=== PATIENT | male | born 1945 | race African-American/Black ===

== ENCOUNTER 2018-10-06 11:34 | Inpatient (IN) | payer MEDICARE, MEDICAID ==
[2018-10-06] VITALS: BP 128/73
[~2018-10-06] VITALS: Ht 175.3 cm; Wt 99.8 kg
[~2018-10-06 11:34] MED LIST: METFORMIN; METOPROLOL
[2018-10-06] MEDS ORDERED: KETOROLAC 15MG/ML VIAL IV ONE (12:00)
[2018-10-06 12:16] LABS: BASOPHILS % 0.9 % (0.0-2.0); EOSINOPHILS % 1.2 % (0.0-5.0); HEMATOCRIT. 50.8 % (42.0-52.0); HEMOGLOBIN. 16.6 g/dL (14.0-18.0); LYMPHOCYTES % 25.2 % (20.0-50.0); MEAN CORPUSCULAR HEMOGLOBIN 27.3 pg (28.0-32.0); MEAN CORPUSCULAR VOLUME 83.5 fL (80.0-94.0); MEAN PLATELET VOLUME 8.4 fl (7.4-10.4); MONOCYTES % 12.4 % (2.0-8.0); NEUTROPHILS % 60.3 % (40.0-76.0); PLATELET 209 x1000/uL (130-400); RED BLOOD CELL COUNT 6.08 mill/uL (4.7-6.1); RED CELL DISTRIBUTION WIDTH 15.4 % (11.6-14.6)
[2018-10-06 12:18] LABS: CHLORIDE 110 mEq/L (98-107)
[2018-10-06 13:20] LABS: CLARITY URINE CLEAR (CLEAR); COLOR URINE YELLOW (YELLOW); KETONES URINE TRACE (NEGATIVE); LEUKOCYTE ESTERASE URINE TRACE (NEGATIVE); NITRITE URINE NEGATIVE (NEGATIVE); OCCULT BLOOD URINE 2+ (NEGATIVE); PH URINE 6.5 (4.5-8.0); PROTEIN URINE 1+ (NEGATIVE); SPECIFIC GRAVITY URINE 1.021 (1.005-1.030)
[2018-10-06] MEDS ORDERED: TAMSULOSIN HCL 0.4MG SR CAPSULE PO ONE (15:30)
[2018-10-06] MEDS ORDERED: SODIUM CHLORIDE 0.9% 1,000 ML IV ONE (15:30)
[2018-10-06] MEDS ORDERED: KETOROLAC 15MG/ML VIAL IV PRN (16:15)
[2018-10-06] MEDS ORDERED: ACETAMINOPHEN 325MG TABLET PO PRN (16:15)
[2018-10-06] MEDS ORDERED: SODIUM CHLORIDE 0.9% 1,000 ML IV SCH (16:15)
[2018-10-06] MEDS ORDERED: ONDANSETRON HCL 4MG/2ML INJ IV PRN (16:15)
[2018-10-06] MEDS ORDERED: CLONIDINE 0.1MG TABLET PO PRN (16:15)
[2018-10-06] MEDS ORDERED: HYDROCODONE/ACETAMINOPHEN 5/325MG TABLET PO PRN (16:15)
[2018-10-06] MEDS ORDERED: CEFTRIAXONE 1 G PREMIX 50 ML IV ONE (16:15)
[2018-10-06 20:00] VITALS: BP 136/94
[2018-10-06] MEDS: LOSARTAN POTASSIUM 50 MG TABLET PO SCH (20:26)
[2018-10-06] MEDS: KETOROLAC 15MG/ML VIAL IV SCH (20:27)
[2018-10-06] MEDS: AMLODIPINE 5MG TABLET PO SCH (21:24)
[2018-10-06] MEDS ORDERED: LOSA100T14 PO (23:15)
[2018-10-06] MEDS ORDERED: ATOR20TA65 PO (23:15)
[2018-10-06] MEDS ORDERED: METO25TA6 MT (23:15)
[2018-10-06] MEDS ORDERED: AMLO10TA80 MT (23:15)
[2018-10-06] MEDS ORDERED: METF500T60 PO (23:15)
[2018-10-06] MEDS ORDERED: ASPI-986 PO (23:15)
[2018-10-06] MEDS ORDERED: METO-539 MT (23:16)
[2018-10-07] VITALS: BP 128/73
[2018-10-07] MEDS: KETOROLAC 15MG/ML VIAL IV SCH ×2 (03:50→08:17)
[2018-10-07 04:00] VITALS: BP 131/78
[2018-10-07 06:38] LABS: BASOPHILS % 0.6 % (0.0-2.0); EOSINOPHILS % 2.1 % (0.0-5.0); HEMATOCRIT. 43.5 % (42.0-52.0); HEMOGLOBIN. 14.5 g/dL (14.0-18.0); LYMPHOCYTES % 30.1 % (20.0-50.0); MEAN CORPUSCULAR HEMOGLOBIN 27.3 pg (28.0-32.0); MEAN CORPUSCULAR VOLUME 82.1 fL (80.0-94.0); MEAN PLATELET VOLUME 8.7 fl (7.4-10.4); MONOCYTES % 13.5 % (2.0-8.0); NEUTROPHILS % 53.7 % (40.0-76.0); PLATELET 175 x1000/uL (130-400); RED CELL DISTRIBUTION WIDTH 15.3 % (11.6-14.6)
[2018-10-07 07:00] LABS: CHLORIDE 112 mEq/L (98-107)
[2018-10-07 08:00] VITALS: BP 144/83
[2018-10-07] MEDS: AMLODIPINE 5MG TABLET PO SCH (08:17)
[2018-10-07] MEDS: LOSARTAN POTASSIUM 50 MG TABLET PO SCH (08:17)
[2018-10-07] MEDS ORDERED: TAMSULOSIN HCL 0.4MG SR CAPSULE PO SCH (09:00)
[2018-10-07 11:50] VITALS: BP 147/80
[2018-10-07] MEDS ORDERED: KETOROLAC 30MG/ML VIAL IV SCH (12:00)
[2018-10-07] MEDS ORDERED: CEFTRIAXONE 1 G PREMIX 50 ML IV SCH ×2 (14:00→16:00)
[2018-10-07 15:37] VITALS: BP 145/77
[2018-10-07 16:16] VITALS: BP 145/77
[2018-10-07] MEDS ORDERED: KETOROLAC 15MG/ML VIAL IV SCH (18:00)
[2018-10-07] MEDS ORDERED: ATORVASTATIN CALCIUM 20MG TABLET PO SCH (21:00)
== END 2018-10-07 18:52 | disposition home or self-care (01) | DRG 694 ==
LOC: ER 11:34 → 6EST 16:07 → ENRESERV 17:22 → 6EST 10-07 06:09
PROVIDERS: ADMIT Internal Medicine; ATTEND Internal Medicine
DX: N13.2 Hydronephrosis with renal and ureteral calculous obstruction (principal); E11.65 Type 2 diabetes mellitus with hyperglycemia; E86.0 Dehydration; I10 Essential (primary) hypertension; K80.20 Calculus of gallbladder without cholecystitis without obstruction; K82.8 Other specified diseases of gallbladder; M19.90 Unspecified osteoarthritis, unspecified site; N28.1 Cyst of kidney, acquired; Z86.73 Personal history of transient ischemic attack (TIA), and cerebral infarction without residual deficits; Z79.899 Other long term (current) drug therapy; Z79.82 Long term (current) use of aspirin
CPT/HCPCS: 36415; 74176; 80048; 80076; 82962; 96365; 96375; 99285; J0696; J1885; J7030

== ENCOUNTER 2019-07-20 10:02 | Emergency (ER) | payer MEDICARE, MEDICAID ==
[~2019-07-20] VITALS: Ht 177.8 cm; Wt 96.0 kg
[~2019-07-20 10:02] MED LIST changes: +AMLO10TA80 MT; +ASPI-986 PO; +ATOR20TA65 PO; +LOSA100T32 PO; +METF500T60 PO; +METO-539 MT; +METO25TA6 MT
[2019-07-20 11:33] LABS: BASOPHILS % 1.1 % (0.0-2.0); EOSINOPHILS % 1.7 % (0.0-5.0); HEMATOCRIT. 46.4 % (42.0-52.0); HEMOGLOBIN. 15.8 g/dL (14.0-18.0); LYMPHOCYTES % 33.1 % (20.0-50.0); MEAN CORPUSCULAR HEMOGLOBIN 27.7 pg (28.0-32.0); MEAN CORPUSCULAR VOLUME 81.3 fL (80.0-94.0); MEAN PLATELET VOLUME 8.9 fl (7.4-10.4); MONOCYTES % 12.9 % (2.0-8.0); NEUTROPHILS % 51.2 % (40.0-76.0); PLATELET 197 x1000/uL (130-400); RED BLOOD CELL COUNT 5.71 mill/uL (4.7-6.1); RED CELL DISTRIBUTION WIDTH 14.6 % (11.6-14.6)
[2019-07-20] MEDS ORDERED: MORPHINE SULFATE 4 MG/ML CPJ (NOT FOR IM USE) IV STA (11:35)
[2019-07-20] MEDS ORDERED: SODIUM CHLORIDE 0.9% 1,000 ML IV ONE (11:35)
[2019-07-20] MEDS ORDERED: ONDANSETRON HCL 4MG/2ML INJ IV STA (11:35)
[2019-07-20 11:40] LABS: CHLORIDE 108 mEq/L (98-107)
[2019-07-20 11:47] LABS: INR 1.1; PROTHROMBIN TIME 10.9 sec (9.6-11.0)
[2019-07-20 12:36] LABS: CLARITY URINE CLEAR (CLEAR); COLOR URINE YELLOW (YELLOW); KETONES URINE NEGATIVE (NEGATIVE); LEUKOCYTE ESTERASE URINE NEGATIVE (NEGATIVE); NITRITE URINE NEGATIVE (NEGATIVE); OCCULT BLOOD URINE NEGATIVE (NEGATIVE); PH URINE 6.5 (4.5-8.0); PROTEIN URINE 1+ (NEGATIVE); SPECIFIC GRAVITY URINE 1.021 (1.005-1.030)
[2019-07-20 13:47] VITALS: BP 159/84
== END 2019-07-20 13:50 | disposition home or self-care (01) ==
LOC: ER 10:02
DX: S39.012A Strain of muscle, fascia and tendon of lower back, initial encounter (principal); I10 Essential (primary) hypertension; M19.90 Unspecified osteoarthritis, unspecified site; I69.351 Hemiplegia and hemiparesis following cerebral infarction affecting right dominant side; Z79.82 Long term (current) use of aspirin; Z98.1 Arthrodesis status; X58.XXXA Exposure to other specified factors, initial encounter; Y93.89 Activity, other specified; Y92.013 Bedroom of single-family (private) house as the place of occurrence of the external cause
CPT/HCPCS: 36415; 74176; 80053; 81003; 83690; 85025; 85610; 96374; 96375; 99285; J2270; J2405; J7030

== ENCOUNTER 2019-11-22 11:51 | Emergency (ER) | payer MEDICARE, MEDICAID ==
[~2019-11-22] VITALS: Ht 180.3 cm; Wt 95.0 kg
[2019-11-22 12:42] LABS: HEMOGLOBIN. 15.4 g/dL (14.0-18.0); MEAN CORPUSCULAR HEMOGLOBIN 27.7 pg (28.0-32.0); MEAN PLATELET VOLUME 8.3 fl (7.4-10.4); PLATELET 220 x1000/uL (130-400); RED BLOOD CELL COUNT 5.55 mill/uL (4.7-6.1); RED CELL DISTRIBUTION WIDTH 15.3 % (11.6-14.6)
[2019-11-22 12:51] LABS: CHLORIDE 106 mEq/L (98-107)
[2019-11-22] MEDS: AMPICILLIN SOD/SULBACTAM NA 3 G in SODIUM CHLORIDE 0.9% 100 ML IV SCH ×2 (13:00→15:17)
[2019-11-22 13:08] LABS: PLATELET ESTIMATE NORMAL
[2019-11-22] MEDS ORDERED: POTASSIUM CHLORIDE 20MEQ TABLET SR PO ONE (14:45)
[2019-11-22 17:52] VITALS: BP 156/91
== END 2019-11-22 19:04 | disposition short-term general hospital (02) ==
LOC: ER 11:51
DX: L03.116 Cellulitis of left lower limb (principal); L03.115 Cellulitis of right lower limb; E87.6 Hypokalemia; I10 Essential (primary) hypertension; Z79.899 Other long term (current) drug therapy; Z79.82 Long term (current) use of aspirin; Z98.890 Other specified postprocedural states
CPT/HCPCS: 36415; 80053; 85025; 87040; 93970; 96365; 96366; 99285; J0295; J7050; 99284

== ENCOUNTER 2021-08-05 16:45 | Inpatient (IN) | payer MEDICARE, MEDICAID ==
[~2021-08-05] VITALS: Ht 190.5 cm; Wt 92.5 kg
[2021-08-05] MEDS ORDERED: IPRATROPIUM BROMIDE (0.02%) 0.5MG/2.5ML NEB HHN STA (17:12)
[2021-08-05] MEDS ORDERED: METHYLPREDNISOLONE SOD SUCC 125 MG/2 ML VIAL IV STA (17:12)
[2021-08-05] MEDS ORDERED: MAGNESIUM 2 G PREMIX 50 ML IV ONE (17:15)
[2021-08-05 17:46] LABS: BASOPHILS % 0.3 % (0.0-2.0); EOSINOPHILS % 0.4 % (0.0-5.0); HEMATOCRIT. 47.3 % (42.0-52.0); HEMOGLOBIN. 15.8 g/dL (14.0-18.0); LYMPHOCYTES % 13.8 % (20.0-50.0); MEAN CORPUSCULAR HEMOGLOBIN 26.9 pg (28.0-32.0); MEAN CORPUSCULAR VOLUME 80.3 fL (80.0-94.0); MEAN PLATELET VOLUME 8.4 fl (7.4-10.4); MONOCYTES % 3.7 % (2.0-8.0); NEUTROPHILS % 81.8 % (40.0-76.0); PLATELET 158 x1000/uL (130-400); RED BLOOD CELL COUNT 5.89 mill/uL (4.7-6.1); RED CELL DISTRIBUTION WIDTH 15.3 % (11.6-14.6)
[2021-08-05 17:53] LABS: CHLORIDE 106 mEq/L (98-107)
[2021-08-05 18:07] LABS: BG CARBOXYHEMOGLOBIN 0.7 % (0.5-1.5); BG DEOXYHEMOGLOBIN 9.1 % (0.0-5.0); BG FRACTION INSPIRED OXYGEN 21; BG HCO3 ACT 24.7 mmol/L (22.0-26.0); BG METHEMOGLOBIN 0.1 % (0.0-1.5); BG OXYGEN SATURATION 90.8 % (92.0-98.5); BG OXYHEMOGLOBIN 90.1 % (94.0-97.0); BG PCO2 36.7 mmHg (35.0-45.0); BG PH 7.446 (7.350-7.450); BG PO2 56.3 mmHg (75.0-100.0); BG SAMPLE SITE LEFT RADIAL; BG TOTAL HEMOGLOBIN 16.3 g/dL (12.0-18.0); BG VENT MODE ROOM AIR
[2021-08-05] MEDS: ALBUTEROL (0.083%) 2.5MG/3ML NEB HHN SCH ×3 (18:10→19:05)
[2021-08-05] MEDS ORDERED: ACETAMINOPHEN 325MG TABLET PO ONE (21:00)
[2021-08-06] MEDS ORDERED: ENOXAPARIN 100MG/ML SYR SUBCUT ONE (00:45)
[2021-08-06] MEDS ORDERED: METHYLPREDNISOLONE SOD SUCC 40 MG/ML VIAL IV SCH ×2 (06:00→14:00)
[2021-08-06] MEDS ORDERED: IPRATROPIUM/ALBUTEROL 0.5-3(2.5)MG/3ML NEB HHN PRN (06:45)
[2021-08-06] MEDS ORDERED: IOHEXOL-350 100 ML BOTTLE ONE (07:34)
[2021-08-06 11:45] VITALS: BP 179/98
[2021-08-06 11:48] VITALS: BP 179/98
[2021-08-06] MEDS ORDERED: LORAZEPAM 0.5MG TABLET PO PRN (12:15)
[2021-08-06] MEDS ORDERED: ACETAMINOPHEN 650MG/20.3ML UDC GT PRN (12:15)
[2021-08-06] MEDS ORDERED: DIPHENHYDRAMINE 50MG/ML VIAL IV PRN (12:15)
[2021-08-06] MEDS ORDERED: CEFTRIAXONE 1 G PREMIX 50 ML IV SCH (12:15)
[2021-08-06] MEDS ORDERED: DOCUSATE SODIUM 100MG CAPSULE PO PRN (12:15)
[2021-08-06] MEDS ORDERED: MAGNESIUM/ALUMINUM HYDROXIDE/SIMETHICONE 30ML UDC PO PRN (12:15)
[2021-08-06] MEDS ORDERED: GUAIFENESIN 200MG/10ML SUGAR FREE UDC PO PRN (12:15)
[2021-08-06] MEDS ORDERED: NA PHOS,M-B/NA PHOS,DI-BA ENEMA 118ML PR PRN (12:15)
[2021-08-06] MEDS ORDERED: IPRATROPIUM/ALBUTEROL 0.5-3(2.5)MG/3ML NEB NEB PRN (12:15)
[2021-08-06] MEDS ORDERED: DEXTROSE 50% WATER 50ML SYRINGE IV PRN ×2 (12:15→14:30)
[2021-08-06] MEDS ORDERED: ONDANSETRON HCL 4MG/2ML INJ IV PRN (12:15)
[2021-08-06] MEDS: BLOOD SUGAR DIAGNOSTIC STRIP TEST SCH ×3 (12:23→21:20)
[2021-08-06] MEDS: IPRATROPIUM/ALBUTEROL 0.5-3(2.5)MG/3ML NEB NEB SCH ×2 (12:30→18:00)
[2021-08-06] MEDS: AMLODIPINE 5MG TABLET PO SCH ×2 (12:41→21:21)
[2021-08-06] MEDS: INSULIN LISPRO 100 UNITS/ML SUBCUT SCH ×2 (12:42→21:22)
[2021-08-06] MEDS: CLONIDINE 0.1MG TABLET PO PRN (13:21)
[2021-08-06] MEDS: CEFTRIAXONE 1,000 MG in DEXTROSE 5% WATER 50 ML IV SCH (13:43)
[2021-08-06] MEDS ORDERED: FURO-151 MT (13:49)
[2021-08-06] MEDS ORDERED: TAMS-11 MT (13:49)
[2021-08-06 14:00] VITALS: BP 157/91
[2021-08-06] MEDS: AZITHROMYCIN 500 MG in DEXT 5% WATER 250 ML IV SCH (14:50)
[2021-08-06 15:26] LABS: INR 1.2; PROTHROMBIN TIME 13.2 sec (9.6-11.0)
[2021-08-06 15:30] LABS: CREATINE KINASE MB FRACTION 1.9 ng/mL (0.5-3.6)
[2021-08-06] MEDS ORDERED: NALOXONE HCL 0.4MG/ML VIAL IV PRN (15:45)
[2021-08-06 15:47] LABS: D-DIMER > 35.20 mg/L FEU (<0.50)
[2021-08-06 16:00] VITALS: BP 148/89
[2021-08-06] MEDS ORDERED: BLOOD SUGAR DIAGNOSTIC STRIP TEST SCH (16:40)
[2021-08-06] MEDS ORDERED: INSULIN LISPRO 100 UNITS/ML SUBCUT SCH (17:10)
[2021-08-06 20:00] VITALS: BP 152/88
[2021-08-06] MEDS ORDERED: AMLODIPINE 5MG TABLET PO SCH (21:00)
[2021-08-06] MEDS: METHYLPREDNISOLONE SOD SUCC 40 MG/ML VIAL IV SCH (21:20)
[2021-08-06] MEDS: FAMOTIDINE 20MG TABLET PO SCH (21:21)
[2021-08-07] VITALS: BP 141/81
[2021-08-07 04:00] VITALS: BP 146/82
[2021-08-07] MEDS: IPRATROPIUM/ALBUTEROL 0.5-3(2.5)MG/3ML NEB NEB SCH ×3 (06:17→17:41)
[2021-08-07] MEDS: METHYLPREDNISOLONE SOD SUCC 40 MG/ML VIAL IV SCH ×3 (06:18→21:00)
[2021-08-07 08:00] VITALS: BP 145/104
[2021-08-07 09:09] LABS: BG BASE EXCESS 3.1 mmol/L (-2.0-2.0); BG CARBOXYHEMOGLOBIN 0.9 % (0.5-1.5); BG DEOXYHEMOGLOBIN 8.9 % (0.0-5.0); BG FRACTION INSPIRED OXYGEN 21; BG HCO3 ACT 26.7 mmol/L (22.0-26.0); BG METHEMOGLOBIN 0.2 % (0.0-1.5); BG PCO2 37.8 mmHg (35.0-45.0); BG PH 7.467 (7.350-7.450); BG PO2 54.2 mmHg (75.0-100.0); BG SAMPLE SITE LEFT BRACHIAL; BG TOTAL HEMOGLOBIN 15.2 g/dL (12.0-18.0); BG VENT MODE ROOM AIR
[2021-08-07] MEDS: ENOXAPARIN 40MG/0.4ML SYR SUBCUT SCH (10:16)
[2021-08-07] MEDS: AMLODIPINE 5MG TABLET PO SCH ×2 (10:17→20:58)
[2021-08-07 11:19] LABS: HEMATOCRIT. 41.5 % (42.0-52.0); HEMOGLOBIN. 14.3 g/dL (14.0-18.0); MEAN CORPUSCULAR HEMOGLOBIN 27.3 pg (28.0-32.0); MEAN CORPUSCULAR VOLUME 79.4 fL (80.0-94.0); MEAN PLATELET VOLUME 9.3 fl (7.4-10.4); PLATELET 129 x1000/uL (130-400); RED BLOOD CELL COUNT 5.24 mill/uL (4.7-6.1); RED CELL DISTRIBUTION WIDTH 15.6 % (11.6-14.6)
[2021-08-07 11:36] LABS: CHLORIDE 107 mEq/L (98-107)
[2021-08-07 11:48] LABS: HDL CHOLESTEROL 52 mg/dL (40-59)
[2021-08-07 11:50] LABS: LDL CHOLESTEROL 74 mg/dL (5-100)
[2021-08-07 11:51] LABS: CREATINE KINASE 274 IU/L (39-308); CREATINE KINASE MB FRACTION 2.2 ng/mL (0.5-3.6)
[2021-08-07 12:00] VITALS: BP_SYST 131; BP_SYST 151; BP_DIAS 87; BP_DIAS 95
[2021-08-07] MEDS: BLOOD SUGAR DIAGNOSTIC STRIP TEST SCH ×3 (12:10→21:53)
[2021-08-07] MEDS: INSULIN LISPRO 100 UNITS/ML SUBCUT SCH ×3 (12:40→20:59)
[2021-08-07] MEDS: HYDROCODONE/ACETAMINOPHEN 5/325MG TABLET PO PRN (13:43)
[2021-08-07] MEDS: CEFTRIAXONE 1,000 MG in DEXTROSE 5% WATER 50 ML IV SCH (13:45)
[2021-08-07 14:14] LABS: PLATELET ESTIMATE NORMAL
[2021-08-07] MEDS: AZITHROMYCIN 500 MG in DEXT 5% WATER 250 ML IV SCH (14:57)
[2021-08-07] MEDS ORDERED: BUDESONIDE 0.5MG/2ML NEB HHN SCH (15:00)
[2021-08-07 16:00] VITALS: BP 147/75
[2021-08-07] MEDS: BUDESONIDE 0.5MG/2ML NEB HHN SCH (17:42)
[2021-08-07] MEDS: PANTOT AC/MIN OIL/PET HY-PHL OINT (AQUAPHOR) TOP SCH (18:00)
[2021-08-07 20:00] VITALS: BP 136/76
[2021-08-07] MEDS: FAMOTIDINE 20MG TABLET PO SCH (20:58)
[2021-08-08] VITALS: BP 125/66
[2021-08-08 04:00] VITALS: BP 151/76
[2021-08-08] MEDS: METHYLPREDNISOLONE SOD SUCC 40 MG/ML VIAL IV SCH (06:38)
[2021-08-08] MEDS: INSULIN LISPRO 100 UNITS/ML SUBCUT SCH ×4 (06:39→21:31)
[2021-08-08] MEDS: BLOOD SUGAR DIAGNOSTIC STRIP TEST SCH ×4 (06:40→21:31)
[2021-08-08 07:24] LABS: HEMOGLOBIN. 14.1 g/dL (14.0-18.0); MEAN CORPUSCULAR HEMOGLOBIN 26.5 pg (28.0-32.0); MEAN CORPUSCULAR VOLUME 78.9 fL (80.0-94.0); MEAN PLATELET VOLUME 9.2 fl (7.4-10.4); PLATELET 122 x1000/uL (130-400); RED BLOOD CELL COUNT 5.32 mill/uL (4.7-6.1); RED CELL DISTRIBUTION WIDTH 15.5 % (11.6-14.6)
[2021-08-08 07:42] LABS: CHLORIDE 109 mEq/L (98-107)
[2021-08-08 08:00] VITALS: BP 153/88
[2021-08-08] MEDS: IPRATROPIUM/ALBUTEROL 0.5-3(2.5)MG/3ML NEB NEB SCH ×4 (10:10→19:54)
[2021-08-08] MEDS: BUDESONIDE 0.5MG/2ML NEB HHN SCH ×2 (10:10→19:55)
[2021-08-08] MEDS: PANTOT AC/MIN OIL/PET HY-PHL OINT (AQUAPHOR) TOP SCH (10:29)
[2021-08-08] MEDS: ENOXAPARIN 40MG/0.4ML SYR SUBCUT SCH (10:29)
[2021-08-08] MEDS: AMLODIPINE 5MG TABLET PO SCH ×2 (10:30→21:25)
[2021-08-08 12:00] VITALS: BP 143/75
[2021-08-08] MEDS: CEFTRIAXONE 1,000 MG in DEXTROSE 5% WATER 50 ML IV SCH (12:33)
[2021-08-08] MEDS ORDERED: IPRA3AMP9 NEB (13:25)
[2021-08-08] MEDS ORDERED: P20 PO (13:25)
[2021-08-08] MEDS ORDERED: FLUT1AER INH (13:25)
[2021-08-08 14:03] LABS: PLATELET ESTIMATE SLIGHTLY DECREASED
[2021-08-08 16:00] VITALS: BP 155/87
[2021-08-08] MEDS ORDERED: LEVO500T89 MT (16:16)
[2021-08-08] MEDS: AZITHROMYCIN 500 MG in DEXT 5% WATER 250 ML IV SCH (17:14)
[2021-08-08 18:35] LABS: CLARITY URINE CLEAR (CLEAR); COLOR URINE YELLOW (YELLOW); KETONES URINE NEGATIVE (NEGATIVE); LEUKOCYTE ESTERASE URINE NEGATIVE (NEGATIVE); NITRITE URINE NEGATIVE (NEGATIVE); OCCULT BLOOD URINE NEGATIVE (NEGATIVE); PH URINE 6.5 (4.5-8.0); PROTEIN URINE NEGATIVE (NEGATIVE); SPECIFIC GRAVITY URINE 1.019 (1.005-1.030); UROBILINOGEN URINE 0.2 E.U./dL (0.2-1.0)
[2021-08-08] MEDS: LEVOFLOXACIN 500MG PREMIX 100 ML IV SCH (18:58)
[2021-08-08 20:00] VITALS: BP 161/82
[2021-08-08] MEDS: FAMOTIDINE 20MG TABLET PO SCH (21:21)
[2021-08-08] MEDS: SILDENAFIL CITRATE 20MG TABLET PO SCH (21:25)
[2021-08-09] VITALS: BP 147/77
[2021-08-09] MEDS: IPRATROPIUM/ALBUTEROL 0.5-3(2.5)MG/3ML NEB NEB SCH ×6 (00:27→20:46)
[2021-08-09 04:00] VITALS: BP 130/65
[2021-08-09] MEDS: HYDROCODONE/ACETAMINOPHEN 5/325MG TABLET PO PRN ×4 (05:26→22:44)
[2021-08-09 08:00] VITALS: BP 161/81
[2021-08-09] MEDS: ENOXAPARIN 40MG/0.4ML SYR SUBCUT SCH (08:23)
[2021-08-09] MEDS: METHYLPREDNISOLONE SOD SUCC 40 MG/ML VIAL IV SCH ×2 (08:24→09:00)
[2021-08-09] MEDS: CLONIDINE 0.1MG TABLET PO PRN (08:25)
[2021-08-09] MEDS: AMLODIPINE 5MG TABLET PO SCH ×2 (08:25→21:58)
[2021-08-09] MEDS: SILDENAFIL CITRATE 20MG TABLET PO SCH ×3 (08:25→21:57)
[2021-08-09] MEDS: BUDESONIDE 0.5MG/2ML NEB HHN SCH (08:41)
[2021-08-09] MEDS: PANTOT AC/MIN OIL/PET HY-PHL OINT (AQUAPHOR) TOP SCH (09:31)
[2021-08-09 11:28] LABS: BASOPHILS % 0.2 % (0.0-2.0); EOSINOPHILS % 1.8 % (0.0-5.0); HEMATOCRIT. 43.6 % (42.0-52.0); HEMOGLOBIN. 14.3 g/dL (14.0-18.0); LYMPHOCYTES % 16.8 % (20.0-50.0); MEAN CORPUSCULAR VOLUME 79.2 fL (80.0-94.0); MONOCYTES % 9.7 % (2.0-8.0); NEUTROPHILS % 71.5 % (40.0-76.0); PLATELET 134 x1000/uL (130-400); RED CELL DISTRIBUTION WIDTH 15.1 % (11.6-14.6)
[2021-08-09 11:40] LABS: CHLORIDE 107 mEq/L (98-107)
[2021-08-09 12:00] VITALS: BP 120/72
[2021-08-09] MEDS: BLOOD SUGAR DIAGNOSTIC STRIP TEST SCH ×3 (12:07→21:58)
[2021-08-09] MEDS: INSULIN LISPRO 100 UNITS/ML SUBCUT SCH ×3 (12:09→22:05)
[2021-08-09] MEDS ORDERED: REV20 MT (14:34)
[2021-08-09] MEDS ORDERED: POTASSIUM CHLORIDE 20MEQ TABLET SR PO SCH (15:00)
[2021-08-09 16:00] VITALS: BP 116/78
[2021-08-09] MEDS: LEVOFLOXACIN 500MG PREMIX 100 ML IV SCH (18:00)
[2021-08-09 20:00] VITALS: BP 135/85
[2021-08-09] MEDS: FAMOTIDINE 20MG TABLET PO SCH (21:57)
[2021-08-10] VITALS: BP 139/80
[2021-08-10] MEDS: IPRATROPIUM/ALBUTEROL 0.5-3(2.5)MG/3ML NEB NEB SCH ×4 (00:21→12:18)
[2021-08-10 04:00] VITALS: BP 131/85
[2021-08-10] MEDS: HYDROCODONE/ACETAMINOPHEN 5/325MG TABLET PO PRN ×2 (04:54→09:44)
[2021-08-10] MEDS: SILDENAFIL CITRATE 20MG TABLET PO SCH (05:26)
[2021-08-10] MEDS: INSULIN LISPRO 100 UNITS/ML SUBCUT SCH (06:01)
[2021-08-10 06:38] VITALS: BP 142/87
[2021-08-10] MEDS: BLOOD SUGAR DIAGNOSTIC STRIP TEST SCH (06:50)
[2021-08-10 08:00] VITALS: BP 142/87
[2021-08-10] MEDS: METHYLPREDNISOLONE SOD SUCC 40 MG/ML VIAL IV SCH (08:17)
[2021-08-10] MEDS: AMLODIPINE 5MG TABLET PO SCH (08:17)
[2021-08-10] MEDS: ENOXAPARIN 40MG/0.4ML SYR SUBCUT SCH (08:18)
[2021-08-10] MEDS: PANTOT AC/MIN OIL/PET HY-PHL OINT (AQUAPHOR) TOP SCH (08:19)
[2021-08-10] MEDS: BUDESONIDE 0.5MG/2ML NEB HHN SCH (08:53)
[2021-08-10 09:44] VITALS: BP 142/87
[2021-08-10] MEDS ORDERED: LEVOFLOXACIN 500MG TABLET PO SCH (15:00)
== END 2021-08-10 14:10 | disposition home or self-care (01) | DRG 193 ==
LOC: ER 16:45 → MICUSO 08-06 00:53 → 5EST 08-06 11:45 → 7EST 08-06 15:57 → 8WST 08-07 08:02
PROVIDERS: ADMIT Internal Medicine; ATTEND Internal Medicine
DX: J18.9 Pneumonia, unspecified organism (principal); J96.01 Acute respiratory failure with hypoxia; J45.901 Unspecified asthma with (acute) exacerbation; D68.59 Other primary thrombophilia; R65.10 Systemic inflammatory response syndrome (SIRS) of non-infectious origin without acute organ dysfunction; M19.90 Unspecified osteoarthritis, unspecified site; R74.01 Elevation of levels of liver transaminase levels; E11.65 Type 2 diabetes mellitus with hyperglycemia; E11.40 Type 2 diabetes mellitus with diabetic neuropathy, unspecified; I11.0 Hypertensive heart disease with heart failure; I50.9 Heart failure, unspecified; I89.0 Lymphedema, not elsewhere classified; K57.30 Diverticulosis of large intestine without perforation or abscess without bleeding; K80.20 Calculus of gallbladder without cholecystitis without obstruction; F41.9 Anxiety disorder, unspecified; Z20.822 Contact with and (suspected) exposure to COVID-19; I27.20 Pulmonary hypertension, unspecified; K59.00 Constipation, unspecified; Z79.4 Long term (current) use of insulin; Z79.51 Long term (current) use of inhaled steroids; Z79.82 Long term (current) use of aspirin; Z79.899 Other long term (current) drug therapy
CPT/HCPCS: 36415; 36600; 71045; 71275; 73502; 73551; 73564; 74176; 76700; 80048; 80053; 80061; 80076; 81003; 82375; 82550; 82553; 82805; 82962; 83036; 83605; 83880; 84145; 84443; 84484; 85025; 85379; 87426; 93005; 93306; 93923; 93971; 94640; 94644; 97162; 99285; C1893; J0456; J0696; J1650; J1815; J1956; J2920; J2930; J3475; J7040; J7060; J7626; Q9967; U0003; U0005

== ENCOUNTER 2022-06-09 16:35 | Emergency (ER) | payer MEDICARE, MEDICAID ==
[~2022-06-09] VITALS: Ht 180.3 cm; Wt 102.0 kg
[~2022-06-09 16:35] MED LIST changes: +FLUT1AER INH; +FURO-151 MT; +IPRA3AMP9 NEB; +LEVO-65 MT; -METFORMIN; -METO25TA6 MT; -METOPROLOL; +P20 PO; +REV20 MT; +TAMS-11 MT
[2022-06-09] MEDS ORDERED: ONDANSETRON 4MG ODT PO STA (16:47)
[2022-06-09] MEDS ORDERED: ASPIRIN 81MG TABLET PO ONE (17:00)
[2022-06-09 17:52] LABS: BASOPHILS % 1.1 % (0.0-2.0); EOSINOPHILS % 1.1 % (0.0-5.0); HEMATOCRIT. 48.2 % (42.0-52.0); HEMOGLOBIN. 16.1 g/dL (14.0-18.0); LYMPHOCYTES % 31.7 % (20.0-50.0); MEAN CORPUSCULAR HEMOGLOBIN 27.3 pg (28.0-32.0); MEAN CORPUSCULAR VOLUME 81.9 fL (80.0-94.0); MEAN PLATELET VOLUME 8.2 fl (7.4-10.4); MONOCYTES % 13.8 % (2.0-8.0); NEUTROPHILS % 52.3 % (40.0-76.0); PLATELET 222 x1000/uL (130-400); RED BLOOD CELL COUNT 5.88 mill/uL (4.7-6.1); RED CELL DISTRIBUTION WIDTH 15.1 % (11.6-14.6)
[2022-06-09 17:58] LABS: CHLORIDE 105 mEq/L (98-107)
[2022-06-09] MEDS ORDERED: ASPIRIN 81MG TABLET PO NR (23:30)
[2022-06-09] MEDS ORDERED: ONDANSETRON 4MG ODT PO NR (23:30)
[2022-06-10 03:45] VITALS: BP 148/82
== END 2022-06-10 04:05 | disposition short-term general hospital (02) ==
LOC: ER 16:35 → CANBEDREQ 06-11 21:04
DX: R07.89 Other chest pain (principal); I20.0 Unstable angina; I11.0 Hypertensive heart disease with heart failure; I50.9 Heart failure, unspecified; Z86.73 Personal history of transient ischemic attack (TIA), and cerebral infarction without residual deficits; Z79.899 Other long term (current) drug therapy; Z20.822 Contact with and (suspected) exposure to COVID-19
CPT/HCPCS: 36415; 71045; 80053; 83880; 84484; 85025; 87426; 93005; 99285; C9803; Q0162